=== PATIENT | female | born 1955 | race Caucasian/White ===

== ENCOUNTER 2018-03-12 06:30 | Day surgery (SDC) | payer OTHER ==
[2018-03-12] MEDS ORDERED: Ringers Lactate 1,000 ML IV ONE (06:43)
[2018-03-12] MEDS: CYCLOPENTOLATE 1% OPTH 2 ML ONE ×3 (06:46→07:28)
[2018-03-12] MEDS: MOXIFLOXACIN HCL 0.5% 3ML OPTH OPTH ONE ×3 (06:46→07:28)
[2018-03-12] MEDS: PHENYLEPHRINE 2.5% OPTH 2 ML ONE ×4 (06:46→07:28)
[2018-03-12] MEDS ORDERED: BSS OPTHALMIC SOL 15 ML BOT OPTH ONE (07:32)
[2018-03-12] MEDS ORDERED: POVIDONE-IODINE 5% EYE DROPS ONE (07:32)
[2018-03-12] MEDS ORDERED: TOBRADEX 0.3-0.1% OPTH OINTMENT ONE (07:32)
[2018-03-12] MEDS ORDERED: FENTANYL CITR 100 MCG/2 ML ONE ×2 (07:47→08:41)
[2018-03-12] MEDS ORDERED: PROPOFOL 200 MG/20 ML VIAL IV ONE (07:47)
[2018-03-12] MEDS ORDERED: MIDAZOLAM HCL 2 MG/2 ML INJ ONE (07:47)
[2018-03-12] MEDS ORDERED: ONDANSETRON 4 MG/2 ML VIAL ONE (08:09)
[2018-03-12] MEDS ORDERED: LANO/MINERAL OIL/PETRO 3.5 GM ONE (08:09)
[2018-03-12] MEDS ORDERED: EPHEDRINE SULF 50 MG/10 ML SYR ONE (08:20)
[2018-03-12] MEDS ORDERED: GLYCOPYRROLATE 0.2 MG/ML SYR ONE (08:41)
[2018-03-12] MEDS ORDERED: KETOROLAC 30 MG/ML INJ ONE (09:34)
== END 2018-03-12 10:50 | disposition home or self-care (01) ==
LOC: OR 06:30
PROVIDERS: ATTEND Ophthalmology
PROC: 08SM0ZZ Reposition Left Extraocular Muscle, Open Approach (ICD-10-PCS; principal; 2018-03-12 07:30)
DX: H50.00 Unspecified esotropia (principal); M19.90 Unspecified osteoarthritis, unspecified site; F17.200 Nicotine dependence, unspecified, uncomplicated
CPT/HCPCS: 67312; J2250; J2405; J2704; J3010 ×2